=== PATIENT | female | born 1960 | race Caucasian/White ===

== ENCOUNTER → 2020-12-17 | Outpatient (CLI) | payer OTHER ==
[2020-12-17 11:41] LABS: ABSOLUTE RETIC # 48 10e9/uL (24-90)
[2020-12-17 12:01] LABS: BAND NEUTROPHILS 4 %; LYMPHOCYTES % (MANUAL) 3 %; MONOCYTES % (MANUAL) 4 %; NEUTROPHILS % (MANUAL) 89 %
[2020-12-17 12:02] LABS: BURR CELLS SLIGHT; TOXIC GRANULATION/VACUOLAZATIO 2+
== END ==
LOC: LABNPT 11:03
PROVIDERS: ATTEND Nurse Practitioner Family
DX: Z01.89 Encounter for other specified special examinations (principal)
CPT/HCPCS: 85007; 85045; 85055

== ENCOUNTER → 2022-06-30 | Outpatient (CLI) | payer BC ==
[2022-06-30 15:46] LABS: CREATININE SERUM 0.58 MG/DL (0.60-1.30)
== END ==
LOC: LAB 15:16
PROVIDERS: ATTEND Specialist
DX: K55.1 Chronic vascular disorders of intestine (principal); I77.1 Stricture of artery
CPT/HCPCS: 36415; 82565; 84520

== ENCOUNTER → 2022-07-01 | Outpatient (CLI) | payer BC, OTHER ==
[~2022-07-01] MED LIST: CATHETER FLUSH 10 ML SYR IV PRN; HOLD METFORMIN - RECEIVED CONTRAST 20 ML VIAL IV SCH; IOHEXOL 350 MG/ML 100 ML (OMNIPAQUE 350) VIAL IV ONE; NS 100 ML (IVPB) BAG IV ONE
--- NOTE | 2022-07-01 09:21 | Diagnostic Imaging Report ---
EXAMINATION: CT angiography of the abdomen and pelvis. TECHNIQUE: After intravenous administration of contrast, thin section axial CT angiography of the abdomen and pelvis were obtained. 3D MIP reformats were provided. All CT scans use one or more of the following dose optimizing techniques: automated exposure control, MA and/or KvP adjustment based on a patient size and exam type, or iterative reconstruction. HISTORY: Mesenteric artery stenosis COMPARISON: None available. FINDINGS: Limited views of the lower thorax are unremarkable. The liver is normal without focal lesion. There is no biliary ductal dilation. Gallbladder is absent. Pancreas is normal. Spleen is normal. Adrenal glands are normal. The kidneys are normal. There is no hydronephrosis. Urinary bladder is normal. Bowel is normal in caliber without obstruction or inflammation. No free fluid or air. No abdominal or pelvic lymphadenopathy. 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 Superior mesenteric artery origins occluded. There is severe stenosis of the inferior mesenteric artery origin. There is a graft from the left common iliac artery to the superior mesenteric artery. There is severe stenosis origin of the graft. There is dilation of the inferior mesenteric artery with collateralization through the arc of [place]. There is no abdominal aortic aneurysm. There is calcified plaque at the distal aorta without significant stenosis. There is mild stenosis of the common iliac arteries. External iliac arteries are patent without significant stenosis. There are no suspicious osseus lesions. IMPRESSION: 1. 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 There is a graft from the common iliac artery to the superior mesenteric artery that is severely narrowed proximally. 2. The inferior mesenteric artery is dilated collateralizing to the superior mesenteric artery through the arc of [place]. Dictated by: Dictated on workstation # [id number]
== END ==
LOC: RAD 07:50
PROVIDERS: ATTEND Specialist
DX: K55.1 Chronic vascular disorders of intestine (principal); I77.1 Stricture of artery
CPT/HCPCS: 74174